=== PATIENT | male | born 1980 ===

== ENCOUNTER 2023-05-30 20:22 | Emergency (ER) | payer OTHER, SELFPAY ==
--- NOTE | 2023-05-30 20:30 | EDRN ---
Patient refusing to be seen or treated, Dr. Ellis is at bedside, patient finally agreed to letting him see the wounds,originally patient just wanted bandages, however sutures were required, explained to patient why, guards at bedside
assisiting in safely cleaning, closing wounds and dressing them
--- NOTE | 2023-05-30 21:09 | ED.GENMED ---
History of Present Illness
General
Chief Complaint: Skin Surface Trauma
Source: patient and other ([facility] guards )
Time Seen by Provider: 05/30/23 20:25
History of Present Illness
History of Present Illness:
6-year-old male presents to the emergency room via ambulance with [facility] guards after suffering lacerations to his left arm. Patient states he was in his cell sleeping and awoke with lacerations to his left arm. There is no one else in the cell
with it. Guard suspect these wounds are self-inflicted though patient does not admit to this. Patient does not provide any information on how the wound happened. Patient was not very cooperative with paramedics being transported to the hospital.
Upon arrival here the patient is initially cooperative and did allow me to undress the wounds and examine him.
Phy Exam
Physical Exam
Physical Exam:
General: Awake, Alert, Oriented X3. No acute distress.
Vitals: unremarkable
Head: Atraumatic
Eyes: Pupils equal, EOMI
Throat: Airway intact, no exudates
Neck: Trachea midline
Lungs: Clear and equal b/l
Heart: Regular rate, no murmurs
Abd: Soft, Nontender, No pulsatile mass
Neuro: Nonfocal
Skin: Warm, dry, no rash
Extremities: pulses equal b/l, no edema
Procedures
Laceration Closure
Left Arm:
Status of Wound: appears infected
Size of Wound in cm: 10
Description of Wound Edges: sharp
Preparation: cleaned with saline
Anesthesia: 1% Lidocaine with epi
Revision/Debridement: routine- no revision
Type of Closure: single layer closure
Skin Closure Material: 4-0 nylon
Number of sutures: 15
Additional information:
Approximately 15 sutures were placed in the serious lacerations. The other lacerations which are either not as deep or not bleeding and could be cared for local dressing.
MDM/Problems Addressed
MDM/Problems Addressed:
Patient presents with lacerations to left arm. Patient did well examination of wounds. Patient initially was refusing suturing of the wound as instead preferring laser surgery. However at least to the patient had some superficial arterial
bleeding. There would be no way the patient could be treated appropriately without suturing his wounds. Ultimately he did except suturing of the serious wounds. The last years was on the left on close. Patient states his last tetanus shot was 6
months ago. Also considering these wounds were likely self-inflicted closure of the most serious wounds was appropriate.
*Critical Care Note
Total Time (30-74mins, 75-104mins- exclusive of procedures): Not Applicable
ED Attending Note
-
Portions of this chart may have been created with voice recognition software.� Occasional wrong word or��sound alike� substitutions may have occurred due to the inherent limitations of voice recognition software.
Discharge Plan
Departure
Patient Disposition: Senior Care
Date of Disposition: 05/30/23
Time of Disposition: 21:10
Condition: Good
Discharge Problem:
Laceration of multiple sites of arm
Instructions: Laceration Repair With Stitches (DC)
Referrals:
[facility] [Family Provider] -
Activity Restrictions/Additional Instructions:
The most significant wounds were approximated with sutures. They should be removed in 7 to 10 days. Pt was not fully cooperative to perform a complete closure of all wounds. Wounds should remained dressed with dressing changed once a day.
Interventions
Interventions:
*Risk Screen - Suicide Last Done: 05/30/23 20:30
*General Assessment Last Done: 05/30/23 20:30
*Neglect/Abuse Screening Last Done: 05/30/23 20:30
ED- Fall Risk Assessment Last Done: 05/30/23 20:30
*ED COVID-19 Vaccine History Last Done: 05/30/23 20:30
*Nursing Disposition Last Done: 05/30/23 21:37
ED-Skin Assessment Last Done: 05/30/23 20:30
Discharge Date and Time
Discharge Date/Time: 05/30/23 21:38
== END 2023-05-30 21:38 ==
LOC: EMR 20:22
PROVIDERS: EMERGENCY PHYSICIAN Emergency Medicine
DX: S41.112A Laceration without foreign body of left upper arm, initial encounter (principal); X58.XXXA Exposure to other specified factors, initial encounter
CPT/HCPCS: 99282; 12004